=== PATIENT | female | born 1955 | race Caucasian/White ===

== ENCOUNTER 2021-08-28 02:21 | Outpatient (CLI) | payer MEDICARE, MEDICAID | END 2021-08-28 23:59 | disposition home or self-care (01) | LOC: RT 02:21 | PROVIDERS: ATTEND Nurse Practitioner Family | DX: J44.9 Chronic obstructive pulmonary disease, unspecified (principal); R09.02 Hypoxemia | CPT/HCPCS: 94618 ==

== ENCOUNTER 2025-01-11 20:57 | Emergency (ER) | payer MEDICARE, MEDICAID ==
[~2025-01-11] VITALS: Ht 154.9 cm; Wt 60.0 kg
[2025-01-11 21:07] VITALS: BP 122/86; PULSE 95; RESP 18; O2SAT 94
--- NOTE | 2025-01-11 21:45 | RADIOLOGY REPORT ---
CLINICAL INDICATION: RIGHT FOOT PAIN TECHNIQUE: FOOT CPLTDI FOOT, COMPLETE (3VW MIN) Comparison: None FINDINGS/IMPRESSION: : There is no evidence of acute fracture or dislocation. Mild to moderate degenerative changes of the 1st MTP joint. Pes planus. Soft tissues are unremarkable.
--- NOTE | 2025-01-11 22:50 | Physician Documentation ---
History of Present Illness ~ Chief Complaint: Foot pain Stated Complaint: RIGHT FOOT PAIN Time Seen by MD: 21:24 Primary Medical Doctor: none HPI 69-year-old female who presents to the emergency department for evaluation of her right 4th toe. Caught it underneath the dresser while wearing her flip- flops. There is ecchymosis and tenderness without deformity. She wonders if she broke her toe. Tetanus witin 5 years: No (unknown) Medication Reconciliation Allergies: Coded Allergies: codeine (Verified Allergy, Unknown, 02/11/14) Past Medical History Past Medical History: Chronic Pain, Chronic Back Pain Alcohol Use: None Drug Use: none Lives with: Spouse Lives In: Home Occupation: retired Review of Systems All Other Systems at this time: Reviewed and Negative Musculoskeletal: Reports: joint pain, joint swelling Physical Exam Vital Signs: Temperature: 98.0, Source: Temporal, Heart Rate: 95, Respiratory Rate: 18, BP: 122/86, Pulse Oximetry: 94, Weight: 60.000 General Appearance: alert, WD/WN, mild distress Head: normal inspection EENT: PERRL/EOMI Respiratory: no respiratory distress Cardiovascular: normal peripheral pulses Feet: bone tenderness, ecchymosis, limited ROM Feet Tenderness, swelling and ecchymosis to the right 4th toe Skin: normal color Lymphatic: normal inspection Neurologic: oriented x4 Psychiatric: normal mood/affect Progress Results/Orders Results/Orders Vital Signs 01/11/25 01/11/25 21:07 22:54 Temp 98.0 98.0 Pulse 95 Resp 18 B/P (MAP) 122/86 Pulse Ox 94 Medical Decision Making Additional Comment Examination history consistent with a nondisplaced fracture of the head of the right 4th proximal phalanx. X-ray imaging reviewed by myself shows a fracture in only one view. Radiologist does not report being a fracture. Recomm endations are for fernandez tape and cam walker boot. Patient reports that she needs to drive home and she has a cam walker boot and fernandez tape at home. Safely discharged in the emergency department with the recommendation is to follow up with the primary care physician and/orthopedist as needed. Safely discharged with the emergency department. Departure Disposition: 01 HOME / SELF CARE / HOMELESS Impression: Primary Impression: Toe fracture, right Qualified Codes: S92.534A - Nondisplaced fracture of distal phalanx of right lesser toe(s), initial encounter for closed fracture Condition: Stable Discharge Instructions: Toe Fracture Additional Instructions: Please wear your orthopedic boot and fernandez tape your toes for comfort and support. Please take Tylenol and/or ibuprofen. Follow up with the primary care physician and/orthopedist if pain persists. Referrals: NO PRIMARY CARE PROVIDER (PCP) Education Educated: Patient Educated regarding: diagnosis, treatment, prognosis Signature Scribe Signature: . Attestation: . ALEENA JETER PAC Jan 11, 2025 22:50
[2025-01-11 22:54] VITALS: TEMP 98
== END 2025-01-11 22:55 | disposition home or self-care (01) ==
LOC: ER 20:58
DX: S92.534A Nondisplaced fracture of distal phalanx of right lesser toe(s), initial encounter for closed fracture (principal); Z88.5 Allergy status to narcotic agent; X58.XXXA Exposure to other specified factors, initial encounter; Y93.89 Activity, other specified; Y92.89 Other specified places as the place of occurrence of the external cause; Y99.8 Other external cause status
CPT/HCPCS: 73630; 99283